=== PATIENT | male | born 1985 | race Caucasian/White ===

== ENCOUNTER 2017-01-23 21:38 | Inpatient (IN) | payer MEDICAID ==
[~2017-01-23 21:38] MED LIST: ABILIFY10 MG PO; ABILIFY5 M1 PO; ABILIFY5 MG PO; AFRIN15 ML; ALPHAGAN P10 ML; ALPHAGAN P10 ML LEFT EYE; ALTABAX TP; AMOXIL875 MG PO; ANDROGEL TD; ANDROGEL5 GM; ASTELIN137 MCG; ATROPINE CARE2 ML LEFT EYE; AUGMENTIN 875-11 TAB PO; AZITHROMYCIN250 MG PO; BRIMONIDINE TART5 M1 OP; CALCIUM; CALCIUM 600 MG1 EACH PO; CALCIUM PO; CATAPRES0.2 MG PO; CLEOCIN HCL300 MG PO; CORTISPORIN EAR10 M LEFT EAR; COSOPT EYE DROPS5 ML; COSOPT EYE DROPS5 ML LEFT EYE; COSOPT EYE DROPS5 ML OP; CPAP; CYMBALTA60 MG; DIAMOX SEQUELS500 MG; DIAMOX SEQUELS500 MG PO; DIAMOX250 MG/TAB PO; ECONAZOLE NITRA30 GM TP; FOSAMAX70 MG; HYDROCORTISONE10 MG PO; HYDROCORTISONE20 MG PO; HYDROCORTISONE5 MG PO; INDERAL10 MG PO; INDERAL80 MG; KEPPRA500 M1 PO; KEPPRA500 MG; LAMISIL250 MG PO; LEVOTHROID200 MCG PO; LEVOTHROID50 MCG PO; LORTAB 5-500 T1 EACH PO; MUCINEX600 MG; MULTI-VITAMIN1 EAC1 PO; MULTIVITAMIN1 TAB; NASONEX17 GM NS; NEPTAZANE25 MG; NEURONTIN600 MG; NEURONTIN600 MG PO; NORCO 5/325 TAB1 TAB PO; PRED FORTE5 ML LEFT EYE; PRILOSEC20 MG; PRILOSEC20 MG PO; PRILOSEC40 MG PO; SEROSTIM4 MG SC; SINUS RINSE; SOMATROPIN; SOMATROPIN SC; SOMATROPIN SQ; SYNTHROID0.2 MG/TAB PO; SYNTHROID100 MCG PO; SYNTHROID125 MCG PO; SYNTHROID150 MCG PO; SYNTHROID200 MCG; SYNTHROID25 MCG; SYNTHROID300 MCG PO; SYNTHROID50 MCG PO; SYSTANE 0.3-0.4%5 ML OP; SYSTANE LIQUID15 ML OP; TEGRETOL XR400 MG; TEGRETOL XR400 MG PO; TOPAMAX100 M2 PO; TOPAMAX25 MG PO; TOPAMAX50 MG; VIBRA-TABS100 MG PO; VITAMIN D1000 UNI1 PO; XALATAN2.5 ML; XALATAN2.5 ML LEFT EYE; XALATAN2.5 ML OP; ZITHROMAX250MG Z-PAK PO; ZOFRAN ODT4 MG/UDTAB PO; [UNRECOGNIZED DRUG - OTHER]; [UNRECOGNIZED DRUG - OTHER]; [UNRECOGNIZED DRUG - OTHER]
[2017-01-23 23:33] LABS: BASO % 0.1 % (0-2); EOS % 0.1 % (0-7); HCT-HEMATOCRIT 44.4 % (36.0-53.5); HGB-HEMOGLOBIN 14.7 gm/dl (13.5-17.0); IMMATURE GRANULOCYTES ABSOLUTE 0.02 tho/cmm (0-0.03); IMMATURE GRANULOCYTES PERCENT 0.2 % (0-0.3); LYMPH % 5.1 % (20-45); LYMPH ABSOLUTE COUNT 0.6 tho/cmm (0.8-4.5); MCH (MEAN CORPUSCULAR HGB) 30.6 pg (28.0-32.0); MCHC MEAN CORPUSCULAR HGB CONC 33.1 % (32.0-36.0); MCV (MEAN CELL VOLUME) 92.5 fl (82.0-96.0); MEAN PLATELET VOLUME 11.2 cmc (9.4-12.4); MONO % 6.7 % (0-12); MONOCYTE ABSOLUTE COUNT 0.8 tho/cmm (0.0-1.2); NEUTROPHIL ABSOLUTE COUNT 10.5 tho/cmm (1.6-8.0); NEUTROPHIL-AUTOMATED 10.5 tho/cmm (1.6-8.0); NEUTROPHILS % 87.8 % (40-80); PLATELET COUNT 97 tho/cmm (150-450)
[2017-01-23 23:51] LABS: ALB/GLOB RATIO 1.2 (0.8-2.0); ALBUMIN 3.9 g/dl (3.5-5.0); ALKALINE PHOSPHATASE 105 U/L (33-138); ALT/SGPT 23 U/L (12-78); ANION GAP 12 mmol/L (0-20); AST/SGOT 16 U/L (10-40); BILIRUBIN,TOTAL 0.6 mg/dl (0.0-1.5); BLOOD UREA NITROGEN 24 mg/dl (6-24); CALCIUM 8.7 mg/dl (8.5-10.5); CARBON DIOXIDE-VENOUS 22 mmol/L (22-32); CHLORIDE 114 mmol/l (96-110); CREATININE 1.16 mg/dl (0.60-1.30); GLUCOSE 98 mg/dL (70-110); LIPASE 107 U/L (73-393); POTASSIUM 3.7 mmol/L (3.7-5.1); SODIUM 144 mmol/L (135-145); eGFR VALUE FOR BLACK >90 mL/Min
[2017-01-24] MEDS ORDERED: TOPAMAX25 M3 PO (00:39)
[2017-01-24] MEDS ORDERED: COMBIGAN EYE DRO5 M1 EACH EYE (00:40)
[2017-01-24] MEDS ORDERED: VIBRAMYCIN100 M1 PO (00:41)
[2017-01-24] MEDS ORDERED: ARTIFICIAL TEAR1512 EACH EYE (00:41)
[2017-01-24] MEDS ORDERED: SINGULAIR10 M1 PO (00:42)
[2017-01-24] MEDS ORDERED: LACRILUBE (00:42)
[2017-01-24] MEDS ORDERED: CPAP (00:42)
[2017-01-24 00:46] LABS: URINE BILIRUBIN NEGATIVE (NEG); URINE BLOOD NEGATIVE (NEG); URINE GLUCOSE (UA) NEGATIVE (NEG); URINE KETONE NEGATIVE (NEG); URINE LEUKOCYTE ESTERASE NEGATIVE (NEG); URINE NITRITE NEGATIVE (NEG); URINE PROTEIN NEGATIVE (NEG)
[2017-01-24 00:47] LABS: URINE APPEARANCE CLEAR; URINE COLOR YELLOW
[2017-01-24 01:09] LABS: URINE EPITHELIAL CELLS 0 /[HPF] (0-10); URINE RBC 0 /[HPF] (0-5); URINE WBC 0 /[HPF] (0-5)
[2017-01-24 02:41] LABS: PROCALCITONIN 1.46 ng/ml (0.05-0.09)
[2017-01-24 06:48] LABS: ABG CO2 ARTERIAL 15 mmol/L (21-27); ARTERIAL BLD GAS O2 SATURATION 98 % (95-98); ARTERIAL BLOOD GAS PCO2 38 mmHg (32-45); ARTERIAL PO2 118 mmHg (70-100); BICARBONATE 17 mmol/L (21-28); BLOOD GAS BASE EXCESS -10 mM/L (-/+3); PH 7.26 Units (7.35-7.45)
[2017-01-24 06:49] LABS: BASO % 0.1 % (0-2); HCT-HEMATOCRIT 40.3 % (36.0-53.5); HGB-HEMOGLOBIN 13.3 gm/dl (13.5-17.0); IMMATURE GRANULOCYTES ABSOLUTE 0.02 tho/cmm (0-0.03); IMMATURE GRANULOCYTES PERCENT 0.2 % (0-0.3); LYMPH % 5.8 % (20-45); LYMPH ABSOLUTE COUNT 0.6 tho/cmm (0.8-4.5); MCH (MEAN CORPUSCULAR HGB) 30.4 pg (28.0-32.0); MEAN PLATELET VOLUME 11.1 cmc (9.4-12.4); MONO % 5.5 % (0-12); MONOCYTE ABSOLUTE COUNT 0.5 tho/cmm (0.0-1.2); NEUTROPHIL ABSOLUTE COUNT 8.7 tho/cmm (1.6-8.0); NEUTROPHIL-AUTOMATED 8.7 tho/cmm (1.6-8.0); NEUTROPHILS % 88.4 % (40-80); PLATELET COUNT 100 tho/cmm (150-450); RED BLOOD COUNT 4.38 mil/cmm (4.40-5.70); RED CELL DISTRIBUTION WIDTH 14.2 % (12.4-16.4); WHITE BLOOD COUNT 9.9 tho/cmm (4.0-10.0)
[2017-01-24 07:05] LABS: ALB/GLOB RATIO 1.1 (0.8-2.0); ALBUMIN 3.2 g/dl (3.5-5.0); ALKALINE PHOSPHATASE 86 U/L (33-138); ALT/SGPT 24 U/L (12-78); ANION GAP 16 mmol/L (0-20); AST/SGOT 23 U/L (10-40); BLOOD UREA NITROGEN 23 mg/dl (6-24); CALCIUM 7.8 mg/dl (8.5-10.5); CARBON DIOXIDE-VENOUS 18 mmol/L (22-32); CHLORIDE 117 mmol/l (96-110); CREATININE 1.11 mg/dl (0.60-1.30); GLUCOSE 129 mg/dL (70-110); POTASSIUM 3.3 mmol/L (3.7-5.1); SODIUM 148 mmol/L (135-145); eGFR VALUE FOR BLACK >90 mL/Min
[2017-01-24 07:33] LABS: PROCALCITONIN 1.47 ng/ml (0.05-0.09)
[2017-01-24 07:38] LABS: MAGNESIUM 1.9 mg/dl (1.3-2.6); PHOSPHOROUS 4.2 mg/dl (2.5-4.9)
[2017-01-24 07:41] LABS: TSH-THYROID STIMULATING HORM. 0.03 uIU/ml (0.40-3.80)
[2017-01-24 16:51] LABS: ANION GAP 14 mmol/L (0-20); BLOOD UREA NITROGEN 20 mg/dl (6-24); CALCIUM 7.5 mg/dl (8.5-10.5); CARBON DIOXIDE-VENOUS 17 mmol/L (22-32); CHLORIDE 117 mmol/l (96-110); CREATININE 1.06 mg/dl (0.60-1.30); GLUCOSE 182 mg/dL (70-110); POTASSIUM 3.5 mmol/L (3.7-5.1); SODIUM 144 mmol/L (135-145); eGFR VALUE FOR BLACK >90 mL/Min
[2017-01-25 05:00] LABS: BASO % 0.3 % (0-2); HCT-HEMATOCRIT 38.8 % (36.0-53.5); HGB-HEMOGLOBIN 12.6 gm/dl (13.5-17.0); IMMATURE GRANULOCYTES ABSOLUTE 0.01 tho/cmm (0-0.03); IMMATURE GRANULOCYTES PERCENT 0.3 % (0-0.3); LYMPH % 20.7 % (20-45); LYMPH ABSOLUTE COUNT 0.8 tho/cmm (0.8-4.5); MCHC MEAN CORPUSCULAR HGB CONC 32.5 % (32.0-36.0); MCV (MEAN CELL VOLUME) 92.4 fl (82.0-96.0); MEAN PLATELET VOLUME 11.7 cmc (9.4-12.4); MONO % 10.7 % (0-12); MONOCYTE ABSOLUTE COUNT 0.4 tho/cmm (0.0-1.2); NEUTROPHIL ABSOLUTE COUNT 2.6 tho/cmm (1.6-8.0); NEUTROPHIL-AUTOMATED 2.6 tho/cmm (1.6-8.0); PLATELET COUNT 84 tho/cmm (150-450); RED CELL DISTRIBUTION WIDTH 14.6 % (12.4-16.4)
[2017-01-25 05:19] LABS: WHITE BLOOD COUNT 3.8 tho/cmm (4.0-10.0)
[2017-01-25 05:24] LABS: ALBUMIN 2.9 g/dl (3.5-5.0); ALKALINE PHOSPHATASE 64 U/L (33-138); ALT/SGPT 32 U/L (12-78); ANION GAP 12 mmol/L (0-20); AST/SGOT 31 U/L (10-40); BILIRUBIN,TOTAL 0.5 mg/dl (0.0-1.5); BLOOD UREA NITROGEN 21 mg/dl (6-24); CARBON DIOXIDE-VENOUS 21 mmol/L (22-32); CHLORIDE 119 mmol/l (96-110); CREATININE 1.07 mg/dl (0.60-1.30); GLUCOSE 108 mg/dL (70-110); POTASSIUM 3.7 mmol/L (3.7-5.1); SODIUM 148 mmol/L (135-145); eGFR VALUE FOR BLACK >90 mL/Min
[2017-01-25 06:10] LABS: PROCALCITONIN 1.21 ng/ml (0.05-0.09)
[2017-01-26 04:19] LABS: BASO % 0.3 % (0-2); EOS % 0.3 % (0-7); HCT-HEMATOCRIT 38.4 % (36.0-53.5); HGB-HEMOGLOBIN 12.2 gm/dl (13.5-17.0); IMMATURE GRANULOCYTES ABSOLUTE 0.01 tho/cmm (0-0.03); IMMATURE GRANULOCYTES PERCENT 0.3 % (0-0.3); LYMPH % 29.6 % (20-45); LYMPH ABSOLUTE COUNT 1.1 tho/cmm (0.8-4.5); MCH (MEAN CORPUSCULAR HGB) 29.6 pg (28.0-32.0); MCHC MEAN CORPUSCULAR HGB CONC 31.8 % (32.0-36.0); MCV (MEAN CELL VOLUME) 93.2 fl (82.0-96.0); MEAN PLATELET VOLUME 11.7 cmc (9.4-12.4); MONO % 9.6 % (0-12); MONOCYTE ABSOLUTE COUNT 0.3 tho/cmm (0.0-1.2); NEUTROPHIL ABSOLUTE COUNT 2.1 tho/cmm (1.6-8.0); NEUTROPHIL-AUTOMATED 2.1 tho/cmm (1.6-8.0); NEUTROPHILS % 59.9 % (40-80); PLATELET COUNT 95 tho/cmm (150-450); RED BLOOD COUNT 4.12 mil/cmm (4.40-5.70); RED CELL DISTRIBUTION WIDTH 14.7 % (12.4-16.4); WHITE BLOOD COUNT 3.6 tho/cmm (4.0-10.0)
[2017-01-26 04:39] LABS: ANION GAP 10 mmol/L (0-20); BLOOD UREA NITROGEN 18 mg/dl (6-24); CALCIUM 7.8 mg/dl (8.5-10.5); CARBON DIOXIDE-VENOUS 19 mmol/L (22-32); CHLORIDE 120 mmol/l (96-110); CREATININE 0.94 mg/dl (0.60-1.30); GLUCOSE 149 mg/dL (70-110); POTASSIUM 3.3 mmol/L (3.7-5.1); SODIUM 146 mmol/L (135-145); eGFR VALUE FOR BLACK >90 mL/Min
[2017-01-26] MEDS ORDERED: AUGMENTIN 875-1 EAC2 PO (13:32)
[2017-07-28] MEDS ORDERED: COMBIGAN EYE DRO5 M1 LEFT EYE (20:31)
[2017-07-28] MEDS ORDERED: NORDITROPI5 MG/1.5 M (20:32)
[2017-07-28] MEDS ORDERED: VIBRAMYCIN100 M1 PO (20:32)
== END 2017-01-26 15:16 | DRG 871 ==
LOC: EDMED 21:38 → EMR2 01-24 03:31 → CCU 01-24 05:50 → PCUA 01-25 17:10
PROVIDERS: Emergency Medicine; Family Medicine; Registered Nurse; ADMIT Hospitalist
PROC: 02HV33Z Insertion of Infusion Device into Superior Vena Cava, Percutaneous Approach (ICD-10-PCS; principal; 2017-01-24)
DX: A41.9 Sepsis, unspecified organism (principal); R65.21 Severe sepsis with septic shock; J96.01 Acute respiratory failure with hypoxia; E27.40 Unspecified adrenocortical insufficiency; E87.0 Hyperosmolality and hypernatremia; D69.6 Thrombocytopenia, unspecified; K56.7 Ileus, unspecified; Q85.8 Other phakomatoses, not elsewhere classified; Q87.2 Congenital malformation syndromes predominantly involving limbs; J32.9 Chronic sinusitis, unspecified; G40.909 Epilepsy, unspecified, not intractable, without status epilepticus; G47.33 Obstructive sleep apnea (adult) (pediatric); E03.9 Hypothyroidism, unspecified; E87.6 Hypokalemia; D64.9 Anemia, unspecified; H54.8 Legal blindness, as defined in USA; F71 Moderate intellectual disabilities; Z88.2 Allergy status to sulfonamides; Z79.899 Other long term (current) drug therapy
CPT/HCPCS: C1751; J1650; J1720; J1953; J2270; J2405; J2543; J2930; J3370; J7030; J7040; Q9967